=== PATIENT | female | born 1965 | race Caucasian/White ===

== ENCOUNTER 2017-03-22 10:43 | Emergency (ER) | payer MEDICAID ==
[~2017-03-22] VITALS: Ht 154.9 cm; Wt 93.9 kg
[2017-03-22 12:37] LABS: BASOPHIL % 0.6 % (0-2); RED CELL DISTRIBUTION WIDTH 12.6 % (11.5-14.5)
[2017-03-22 12:45] LABS: PLATELET COUNT 414 x10^3mcL (130-400)
[2017-03-22 12:46] LABS: CALCIUM 9.1 mg/dL (8.5-10.1); CHLORIDE SERUM 101 mmol/L (98-107); CREATININE SERUM 0.9 mg/dL (0.6-1.0); GFR1 > 60 mL/min; GLUCOSE SERUM 145 mg/dL (74-106); POTASSIUM SERUM 4.1 mmol/L (3.5-5.1); SODIUM SERUM 139 mmol/L (136-145)
[2017-03-22 12:52] LABS: ALBUMIN 4.2 g/dL (3.4-5.0); ALKALINE PHOSPHATASE 104 U/L (46-116); ALT/SGPT 31 U/L (14-59); AMYLASE 59 U/L (25-115); AST/SGOT 18 U/L (15-37); BILIRUBIN TOTAL 0.4 mg/dL (0.20-1.00); LIPASE 172 IU/L (73-393)
[2017-03-22 12:54] LABS: TOTAL PROTEIN, SERUM 9.2 g/dL (6.4-8.2)
[2017-03-22 14:41] VITALS: BP 136/65
== END 2017-03-22 14:46 | disposition home or self-care (01) ==
LOC: ED 10:43
PROVIDERS: Emergency Medicine
DX: K52.9 Noninfective gastroenteritis and colitis, unspecified (principal); E11.9 Type 2 diabetes mellitus without complications; I10 Essential (primary) hypertension; Z88.2 Allergy status to sulfonamides; Z88.6 Allergy status to analgesic agent; Z88.5 Allergy status to narcotic agent
CPT/HCPCS: 83880; J2060; J2405; J3010; J7030

== ENCOUNTER 2017-03-25 07:18 | Emergency (ER) | payer MEDICAID ==
[2017-03-25 08:28] LABS: CALCIUM 9.1 mg/dL (8.5-10.1); CARBON DIOXIDE 30.1 mmol/L (21-32); CHLORIDE SERUM 102 mmol/L (98-107); GFR1 > 60 mL/min; GLUCOSE SERUM 161 mg/dL (74-106); POTASSIUM SERUM 4.1 mmol/L (3.5-5.1); SODIUM SERUM 139 mmol/L (136-145)
[2017-03-25 08:32] LABS: ALBUMIN 4.1 g/dL (3.4-5.0); ALKALINE PHOSPHATASE 81 U/L (46-116); ALT/SGPT 26 U/L (14-59); AST/SGOT 20 U/L (15-37); BILIRUBIN TOTAL 0.47 mg/dL (0.20-1.00); LIPASE 175 IU/L (73-393)
[2017-03-25 08:34] LABS: TOTAL PROTEIN, SERUM 8.4 g/dL (6.4-8.2)
[2017-03-25 08:50] LABS: BASOPHIL % 0.2 % (0-2); RED CELL DISTRIBUTION WIDTH 13.1 % (11.5-14.5)
[2017-03-25 08:55] LABS: PLATELET COUNT 415 x10^3mcL (130-400)
[2017-03-25 10:10] VITALS: BP 130/67
== END 2017-03-25 10:10 | disposition home or self-care (01) ==
LOC: ED 07:18
PROVIDERS: Emergency Medicine
DX: R10.9 Unspecified abdominal pain (principal); R11.0 Nausea; I10 Essential (primary) hypertension; E11.9 Type 2 diabetes mellitus without complications; G89.29 Other chronic pain; Z79.4 Long term (current) use of insulin; Z88.2 Allergy status to sulfonamides; Z88.5 Allergy status to narcotic agent; Z88.6 Allergy status to analgesic agent
CPT/HCPCS: 36415; J1885; Q0162